=== PATIENT | male | born 1970 | race Caucasian/White ===

== ENCOUNTER 2022-11-17 15:03 | Inpatient (IN) | payer SELFPAY ==
[2022-11-17] MEDS ORDERED: Sodium Chloride 0.9% 10 ML Syringe FLUSH PRN (15:16)
[2022-11-17] MEDS ORDERED: Sodium Chloride 0.9% 2.5 ML Syringe FLUSH PRN (15:16)
[2022-11-17] MEDS ORDERED: Piperacillin/Tazobactam 4.5 GM in Sodium Chloride 0.9% 100 ML IV ONE (16:04)
[2022-11-17] MEDS ORDERED: Azithromycin 500 MG in Sodium Chloride 0.9% 250 ML IV ONE (16:04)
[2022-11-17] MEDS ORDERED: Sodium Chloride 0.9% 1,000 ML IV ONE (16:06)
[2022-11-17] MEDS ORDERED: VANCOmycin 1.5 GM/300 ML 1.5 GM in Premix Bag 1 BAG IV ONE (16:15)
[2022-11-17] MEDS ORDERED: Sodium Chloride 0.9% 1,000 ML IV SCH (16:15)
[2022-11-17 16:17] LABS: CARBON DIOXIDE,CO2 35.2 mmol/L (21.0-32.0); POTASSIUM,K 4.5 mmol/L (3.5-5.1)
[2022-11-17 16:23] LABS: CORONAVIRUS COVID-19 NAA NEGATIVE (NEGATIVE); INFLUENZA A NAA NEGATIVE (NEGATIVE); INFLUENZA B NAA NEGATIVE (NEGATIVE); RESPIRATORY SYNCYTIAL VIR NAA NEGATIVE (NEGATIVE)
[2022-11-17] MEDS ORDERED: Iopamidol 755 MG/ML 500 ML Multipack Bottle IVPUSH ONE (17:14)
[2022-11-17] MEDS ORDERED: Albuterol/Ipratropium 3.0-0.5 MG/3 ML Neb Soln NEB PRN (19:44)
[2022-11-17] MEDS ORDERED: Polyethylene Glycol 3350 Powder 17 GM Packet PO PRN (19:44)
[2022-11-17] MEDS ORDERED: Temazepam 15 MG Cap PO PRN (19:44)
[2022-11-17] MEDS ORDERED: Ondansetron 4 MG Tab.DIS PO PRN (19:44)
[2022-11-17] MEDS ORDERED: Docusate Sodium 100 MG Cap PO PRN (19:44)
[2022-11-17] MEDS ORDERED: Ondansetron 4 MG/2 ML SDV IVPUSH PRN (19:44)
[2022-11-17] MEDS ORDERED: 50% Dextrose in Water 50 ML Syringe IVPUSH ONE (19:44)
[2022-11-17] MEDS ORDERED: Acetaminophen 325 MG Tab PO PRN (19:44)
[2022-11-17] MEDS ORDERED: hydrALAZINE 20 MG/ML SDV IVPUSH PRN (20:17)
[2022-11-17] MEDS: Enoxaparin 40 MG/0.4 ML Syringe SUBCUT SCH (21:08)
[2022-11-17] MEDS: Nicotine 21 MG/24 Hr Patch TRDERM SCH (21:08)
[2022-11-17] MEDS: Aspirin 81 MG Tab.Chew PO SCH (21:11)
[2022-11-17] MEDS: Insulin Aspart 100 Units/ML 3 ML Pen SUBCUT SCH (21:39)
[2022-11-17] MEDS: cefTRIAXone 1 GM in Sodium Chloride 0.9% 50 ML IV SCH (22:29)
[2022-11-17] MEDS: Sodium Chloride 0.9% 1,000 ML IV SCH (22:29)
[2022-11-17] MEDS ORDERED: Benzonatate 100 MG Cap PO PRN (22:58)
[2022-11-18] MEDS: guaiFENesin 600 MG Tab.ER PO SCH ×3 (00:11→22:35)
[2022-11-18 07:10] LABS: CARBON DIOXIDE,CO2 33.2 mmol/L (21.0-32.0); POTASSIUM,K 4.9 mmol/L (3.5-5.1)
[2022-11-18 07:14] LABS: HEMOGLOBIN A1C 7.8 %
[2022-11-18] MEDS: Insulin Aspart 100 Units/ML 3 ML Pen SUBCUT SCH ×2 (08:12→23:35)
[2022-11-18] MEDS: Aspirin 81 MG Tab.Chew PO SCH (08:13)
[2022-11-18] MEDS: Nicotine 21 MG/24 Hr Patch TRDERM SCH (08:13)
[2022-11-18] MEDS: Famotidine 20 MG Tab PO SCH (08:13)
[2022-11-18] MEDS: Sodium Chloride 0.9% 1,000 ML IV SCH (09:42)
[2022-11-18] MEDS ORDERED: Albuterol/Ipratropium 3.0-0.5 MG/3 ML Neb Soln NEB SCH (12:00)
[2022-11-18] MEDS: Albuterol/Ipratropium 3.0-0.5 MG/3 ML Neb Soln NEB SCH ×2 (12:33→18:14)
[2022-11-18] MEDS: Azithromycin 500 MG in Sodium Chloride 0.9% 250 ML IV SCH (16:07)
[2022-11-18] MEDS: Metoprolol Succinate 25 MG Tab.ER PO SCH (16:41)
[2022-11-18] MEDS ORDERED: Insulin Aspart 100 Units/ML 3 ML Pen SUBCUT SCH (18:00)
[2022-11-18] MEDS ORDERED: Metoprolol Succinate 25 MG Tab.ER PO SCH (21:00)
[2022-11-18] MEDS ORDERED: LORazepam 2 MG/ML SDV IVPUSH ONE (22:26)
[2022-11-18] MEDS ORDERED: cloNIDine 0.1 MG/Day Transdermal Patch TRDERM SCH (22:45)
[2022-11-18] MEDS: cefTRIAXone 1 GM in Sodium Chloride 0.9% 50 ML IV SCH (22:53)
[2022-11-18] MEDS: methylPREDNISolone Sodium Succinate 125 MG/2 ML SDV IVPUSH SCH (22:56)
[2022-11-18] MEDS: Thiamine 200 MG/2 ML MDV IVPUSH SCH (23:30)
[2022-11-18] MEDS: Insulin Glargine,Hum.Rec.Anlog 100 UNIT/ML 3 ML Pen SUBCUT SCH (23:36)
[2022-11-18] MEDS ORDERED: LORazepam 2 MG/ML SDV IVPUSH PRN (23:53)
[2022-11-19] MEDS: Enoxaparin 40 MG/0.4 ML Syringe SUBCUT SCH (00:19)
[2022-11-19] MEDS ORDERED: Metoprolol Tartrate 5 MG/5 ML SDV IVPUSH PRN (04:23)
[2022-11-19] MEDS: methylPREDNISolone Sodium Succinate 125 MG/2 ML SDV IVPUSH SCH ×4 (05:00→21:42)
[2022-11-19] MEDS: Albuterol/Ipratropium 3.0-0.5 MG/3 ML Neb Soln NEB SCH ×2 (06:30→18:44)
[2022-11-19 07:55] LABS: CARBON DIOXIDE,CO2 38.2 mmol/L (21.0-32.0); POTASSIUM,K 5.8 mmol/L (3.5-5.1)
[2022-11-19] MEDS: Metoprolol Succinate 25 MG Tab.ER PO SCH ×2 (09:30→21:45)
[2022-11-19] MEDS: Famotidine 20 MG Tab PO SCH (09:30)
[2022-11-19] MEDS: Aspirin 81 MG Tab.Chew PO SCH (09:30)
[2022-11-19] MEDS: Thiamine 200 MG/2 ML MDV IVPUSH SCH (09:31)
[2022-11-19] MEDS: Nicotine 21 MG/24 Hr Patch TRDERM SCH (09:31)
[2022-11-19] MEDS: VANCOmycin 1.5 GM/300 ML 1.5 GM in Premix Bag 1 BAG IV SCH ×2 (09:37→22:20)
[2022-11-19] MEDS: Insulin Aspart 100 Units/ML 3 ML Pen SUBCUT SCH ×4 (09:44→21:43)
[2022-11-19] MEDS: Insulin Glargine,Hum.Rec.Anlog 100 UNIT/ML 3 ML Pen SUBCUT SCH ×2 (09:45→21:44)
[2022-11-19] MEDS: guaiFENesin 600 MG Tab.ER PO SCH ×2 (09:50→21:14)
[2022-11-19] MEDS: Azithromycin 500 MG in Sodium Chloride 0.9% 250 ML IV SCH (16:50)
[2022-11-19] MEDS: cefTRIAXone 1 GM in Sodium Chloride 0.9% 50 ML IV SCH (21:44)
[2022-11-20] MEDS: methylPREDNISolone Sodium Succinate 125 MG/2 ML SDV IVPUSH SCH (04:59)
[2022-11-20 05:36] LABS: CARBON DIOXIDE,CO2 40.5 mmol/L (21.0-32.0); POTASSIUM,K 5.4 mmol/L (3.5-5.1)
[2022-11-20] MEDS: Albuterol/Ipratropium 3.0-0.5 MG/3 ML Neb Soln NEB SCH ×2 (06:21→17:56)
[2022-11-20] MEDS: Insulin Aspart 100 Units/ML 3 ML Pen SUBCUT SCH ×4 (08:07→21:03)
[2022-11-20] MEDS: Famotidine 20 MG Tab PO SCH (08:11)
[2022-11-20] MEDS: Aspirin 81 MG Tab.Chew PO SCH (08:11)
[2022-11-20] MEDS: guaiFENesin 600 MG Tab.ER PO SCH ×2 (08:11→21:05)
[2022-11-20] MEDS: Metoprolol Succinate 25 MG Tab.ER PO SCH ×2 (08:11→21:05)
[2022-11-20] MEDS: Nicotine 21 MG/24 Hr Patch TRDERM SCH (08:12)
[2022-11-20] MEDS: Thiamine 200 MG/2 ML MDV IVPUSH SCH (08:12)
[2022-11-20] MEDS: Insulin Glargine,Hum.Rec.Anlog 100 UNIT/ML 3 ML Pen SUBCUT SCH (08:12)
[2022-11-20] MEDS: Doxycycline 100 MG Cap PO SCH ×2 (10:46→21:05)
[2022-11-20] MEDS: Fluticasone/Salmeterol 250-50 MCG Inhalation Powder 14/Diskus INH SCH ×2 (11:30→21:06)
[2022-11-20] MEDS: predniSONE 20 MG Tab PO SCH (11:54)
[2022-11-20] MEDS: CLOTRIMAZOLE 1% TOP SCH ×2 (12:52→21:06)
[2022-11-20 18:00] LABS: CARBON DIOXIDE,CO2 37.8 mmol/L (21.0-32.0); POTASSIUM,K 5.1 mmol/L (3.5-5.1)
[2022-11-21 05:07] LABS: BORDETELLA PARAPERT IS1001 Not Detected (Not Detected)
[2022-11-21 06:10] LABS: CARBON DIOXIDE,CO2 38.9 mmol/L (21.0-32.0); POTASSIUM,K 4.2 mmol/L (3.5-5.1)
[2022-11-21] MEDS: Albuterol/Ipratropium 3.0-0.5 MG/3 ML Neb Soln NEB SCH (06:52)
[2022-11-21] MEDS: Insulin Aspart 100 Units/ML 3 ML Pen SUBCUT SCH ×2 (07:53→11:28)
[2022-11-21] MEDS: Nicotine 21 MG/24 Hr Patch TRDERM SCH (08:27)
[2022-11-21] MEDS: Thiamine 200 MG/2 ML MDV IVPUSH SCH (08:27)
[2022-11-21] MEDS: Aspirin 81 MG Tab.Chew PO SCH (08:28)
[2022-11-21] MEDS: Metoprolol Succinate 25 MG Tab.ER PO SCH (08:28)
[2022-11-21] MEDS: Doxycycline 100 MG Cap PO SCH (08:28)
[2022-11-21] MEDS: Famotidine 20 MG Tab PO SCH (08:28)
[2022-11-21] MEDS: guaiFENesin 600 MG Tab.ER PO SCH (08:29)
[2022-11-21] MEDS: CLOTRIMAZOLE 1% TOP SCH (08:29)
[2022-11-21] MEDS: Fluticasone/Salmeterol 250-50 MCG Inhalation Powder 14/Diskus INH SCH (08:29)
[2022-11-21] MEDS: predniSONE 20 MG Tab PO SCH (08:29)
[2022-11-22] MEDS ORDERED: predniSONE 20 MG Tab PO SCH (09:00)
== END 2022-11-21 14:30 | disposition home or self-care (01) | DRG 193 ==
LOC: MW.ED 15:03 → MW.MS 18:49 → MW.ICU 11-18 19:36
PROVIDERS: ADMIT Hospitalist; ATTEND Hospitalist
PROC: 5A09457 Assistance with Respiratory Ventilation, 24-96 Consecutive Hours, Continuous Positive Airway Pressure (ICD-10-PCS; principal; 2022-11-17)
DX: J18.9 Pneumonia, unspecified organism (principal); J96.01 Acute respiratory failure with hypoxia; J96.02 Acute respiratory failure with hypercapnia; J44.0 Chronic obstructive pulmonary disease with (acute) lower respiratory infection; J44.1 Chronic obstructive pulmonary disease with (acute) exacerbation; E87.1 Hypo-osmolality and hyponatremia; I24.8 Other forms of acute ischemic heart disease; E44.0 Moderate protein-calorie malnutrition; E87.20 Acidosis, unspecified; I25.10 Atherosclerotic heart disease of native coronary artery without angina pectoris; Z20.822 Contact with and (suspected) exposure to COVID-19; E86.0 Dehydration; R31.0 Gross hematuria; D72.9 Disorder of white blood cells, unspecified; E11.65 Type 2 diabetes mellitus with hyperglycemia; F17.210 Nicotine dependence, cigarettes, uncomplicated; B35.3 Tinea pedis; B35.1 Tinea unguium; E87.5 Hyperkalemia; Z79.899 Other long term (current) drug therapy; Z79.82 Long term (current) use of aspirin; Z79.84 Long term (current) use of oral hypoglycemic drugs; Z68.30 Body mass index [BMI] 30.0-30.9, adult
CPT/HCPCS: 0241U; 36415; 36600; 51702; 70450; 70450-26; 71045; 71045-26; 71275; 71275-26; 80048; 80053; 80061; 80202; 80305-QW; 81001; 82375; 82803; 82947; 83036; 83605; 83735; 83880; 84484; 85025; 85379; 85610; 87040; 87070; 87205; 87389; 87486; 87581; 87633; 87798; 93005; 93010; 93306; 94640; 94660; 94664; 96365; 96367; 99223; 99233; 99239; 99285; 99285-25; A9270-GY; J0456; J0696; J1650; J1815-GY; J2060; J2543; J2930; J3370; J3411; J3490; J7030; J7050; J7620-GY; Q9967